=== PATIENT | female | born 1945 | race Caucasian/White ===

== ENCOUNTER → 2024-02-06 | Outpatient (CLI) | payer MEDICARE, OTHER, SELFPAY ==
--- NOTE | 2024-02-06 16:46 | XR_ITS ---
Examination: PA lateral chest 2 views TECHNIQUE: Upright PA lateral chest 2 views Exam date and time: February 06, 2024 1722 hours Comparison March 31, 2016 INDICATIONS: Coughing beginning 5 days ago. FINDINGS: No significant cardiac enlargement No pneumonia or pulmonary edema Moderate thoracic spondylosis IMPRESSION: No active disease
== END | disposition home or self-care (01) ==
PROVIDERS: PCP Nurse Practitioner Family; Referring Provider Nurse Practitioner Family; Visit Provider Nurse Practitioner Family
DX: R05.9 Cough, unspecified (principal)
CPT/HCPCS: 71046

== ENCOUNTER 2024-02-07 16:46 | Emergency (ER) | payer MEDICARE, OTHER, SELFPAY ==
[2024-02-07 17:02] VITALS: BP 124/63; PULSE 92; RESP 18; TEMP 36.6; O2SAT 95; BMI 31.4
--- NOTE | 2024-02-07 17:16 | EKG_ITS ---
[facility] Test Date: 2024-02-07 Pat Name: RENATO HENDERSON Department: Room: - Gender: Female Sailmaker: : [id number] Requested By: Wan Calvo (PASTEURISER OPERATOR) Order Number: [id number] Reading MD: Wan Calvo (PASTEURISER OPERATOR) Measurements Intervals [place] Rate: 85 P: DE: QRS: 5 QRSD: 84 T: 10 QT: 360 QTc: 429 Interpretive Statements ATRIAL FIBRILLATION LOW QRS VOLTAGE IN PRECORDIAL LEADS [QRS DEFLECTION < 1.0 mV IN CHEST LEADS] SEPTAL MYOCARDIAL INFARCTION , PROBABLY OLD [40+ ms Q WAVE IN V1/V2] Compared to ECG 01/25/2022 13:32:01 Low QRS voltage now present Myocardial infarct finding still present /store/S0/[id number]/ecg/[id number].pdf
--- NOTE | 2024-02-07 17:16 | XR_ITS ---
Examination: AP lateral chest 2 views Technique: Portable AP upright lateral chest 2 views Exam date and time: February 07, 2024 1733 hrs. Comparison February 06, 2024 Indications: Wheezing coughing shortness of breath beginning 3 days ago. Findings: Normal heart size Mild accentuation basilar bronchovascular markings No lobar pneumonia Prominent thoracic spondylosis Impression: Basilar bronchitis pattern
--- NOTE | 2024-02-07 17:17 | PD.EDRME ---
Rapid Medical Screening Exam RME Arrival date/time: 02/07/24 16:46 78-year-old female presents to the emergency department complaint of generalized weakness cough, congestion and pain Chief Complaint: Shortness of Breath/Dyspnea Time Seen by Provider: 02/07/24 17:02 Vital signs: Vital Signs Temperature 98 F 02/07/24 17:02 Pulse Rate 92 02/07/24 17:02 Respiratory Rate 18 02/07/24 17:02 Blood Pressure 124/63 02/07/24 17:02 Pulse Oximetry (%) 95 02/07/24 17:02 Oxygen Delivery Method Room Air 02/07/24 17:02
[2024-02-07 17:57] LABS: Basophils % (Auto) 1 % (0-2.5); Eosinophils # (Auto) 0.2 Thou/mm3 (0.0-0.5); Eosinophils % (Auto) 4 % (0-10); Hematocrit 40.2 % (36.0-46.0); Hemoglobin 13.7 g/dL (12.0-16.0); Immature Granulocytes % (Auto) 0 % (0-0); Immature Granulocytes Auto 0.01 Thou/mm3 (0.00-0.00); Lymphocytes # (Auto) 2.1 Thou/mm3 (1.0-4.8); Lymphocytes % (Auto) 39 % (10-50); Mean Corpuscular HGB Conc 34.1 g/dl (31.0-37.0); Mean Corpuscular Volume 88 fL (80-100); Monocytes # (Auto) 0.4 Thou/mm3 (0.0-0.8); Monocytes % (Auto) 8 % (0-12); Neutrophils # (Auto) 2.6 Thou/mm3 (1.8-7.7); Neutrophils % (Auto) 48 % (37-80); Nucleated Red Blood Cell % 0 /100 WBC (0); Platelet Count 190 Thou/mm3 (140-440); RDW Standard Deviation 42.8 fL (36.4-46.3); Red Blood Count 4.57 Miln/mm3 (4.00-5.20); White Blood Count 5.5 Thou/mm3 (3.6-11.0)
[2024-02-07 18:22] LABS: B-Type Natriuretic Peptide 64 pg/mL (0-100)
[2024-02-07 18:24] LABS: Alanine Aminotransferase 13 U/L (10-49); Albumin, Serum 4.5 gm/dL (3.4-4.8); Albumin/Globulin Ratio 1.9 (1.2-2.2); Alkaline Phosphatase 76 U/L (46-116); Anion Gap 8 (7-16); Aspartate Amino Transferase 19 U/L (0-34); BUN/Creatinine Ratio 13 Ratio (12-20); Bilirubin,Total 0.3 mg/dL (0.3-1.2); Blood Urea Nitrogen 12 mg/dL (9-23); Calcium 10.9 mg/dL (8.3-10.6); Calcium (Corrected) 10.9 mg/dL (8.5-10.1); Carbon Dioxide 23.7 mMol/L (20.0-31.0); Chloride 107 mMol/L (98-107); Creatinine (Component) 0.9 mg/dL (0.6-1.3); Estimated Creatinine Clearance 54.8 mL/min (>60); Globulin 2.4 gm/dL (2.3-3.5); Glucose 176 mg/dL (74-106); Osmolality,Calculated 281 (275-295); Potassium 4.1 mMol/L (3.4-5.1); Sodium 139 mMol/L (136-145); Total Protein 6.9 gm/dL (5.7-8.2); Troponin I < 0.020 ng/mL (0.0-0.045); eGFR > 60 See Note
--- NOTE | 2024-02-07 19:09 | PD.EDSOB ---
ED SOB =RME/HPI General Chief Complaint: Shortness of Breath/Dyspnea Stated Complaint: WHEEZING, COUGH, SOB X 3 DAYS Time Seen by Provider: 02/07/24 17:02 Arrival date/time: 02/07/24 16:46 Limitations: no limitations RME / HPI RME / HPI Narrative: 02/07/24 16:46 78-year-old female presents to the emergency department complaint of generalized weakness cough, congestion and pain DR. BLACKMON MAIN ED EVALUATION: 78-year-old female with history of hypertension, diabetes, Eliquis, aspirin presenting to the emergency department with generalized weakness x 2 weeks. It started when she started having general wet cough and saw her primary care and placed on a 5-day course of Zithromax. She was not doing any better and started wheezing today. She otherwise is tolerating p.o. and not vomiting. No fever. Generally body is achy and weak. No chest pain. MD Complaint: shortness of breath Onset (ago): hour(s) Context: recent illness Severity: mild Consistency/Duration: intermittent Associated symptoms: denies other symptoms Related Data Home Medications ?Medication ?Instructions ?Recorded ?Confirmed lisinopril 20 mg tablet 10 mg PO QDAY 06/19/20 06/20/22 metformin 500 mg tablet 500 mg PO BID 06/19/20 06/20/22 oxybutynin chloride 5 mg tablet 5 mg PO BID 06/19/20 06/20/22 sertraline 100 mg tablet (Zoloft) 100 mg PO QDAY 06/19/20 06/20/22 simvastatin 20 mg tablet 20 mg PO QDAY 06/19/20 06/20/22 apixaban 5 mg tablet (Eliquis) 5 mg PO BID 01/26/22 06/20/22 aspirin 81 mg tablet,delayed 81 mg PO QDAY 01/26/22 06/20/22 release metoprolol succinate 50 mg 50 mg PO QDAY 01/26/22 06/20/22 tablet,extended release 24 hr Previous Rx's ?Medication ?Instructions ?Recorded acyclovir 400 mg tablet 400 mg PO QDAY #21 tabs 06/22/22 pramoxine-zinc acetate 1 %-0.1 % 1 applic topical TID PRN skin 06/22/22 lotion (Calamine Clear) irritation #177 mL albuterol sulfate 90 mcg/actuation 2 puff inhalation Q6H PRN cough 5 02/07/24 aerosol inhaler days #8.5 grams amoxicillin 875 mg-potassium 1 tab PO BID #17 tabs 02/07/24 clavulanate 125 mg tablet prednisone 50 mg tablet 50 mg PO QDAY #7 tabs 02/07/24 Allergies Allergy/AdvReac Type Severity Reaction Status Date / Time codeine Allergy Intermediate Gastrointestinal Verified 02/07/24 16:47 Upset Review of Systems Review of Systems Systems Reviewed: All systems reviewed, normal except as documented Narrative Review of Systems: GEN: No fever, no chills, no weight loss EYES: No discharge, no visual changes, no pain HEENT: No ear pain, no congestion, no sore throat PULM: + shortness of breath, + we cough CV: No chest pain, no dyspnea on exertion, no palpitations GI: No nausea, no vomiting, no diarrhea, no pain, no constipation : No frequency, no urgency and no dysuria MUSC/SKEL: No joint pain, no back pain SKIN: No rash PSYCH: No hallucinations, no depression HEME/LYMPH: No easy bleeding or bruising tendencies NEURO: + generalized weakness, no headache Past Medical History Past Medical History CARDIAC: Positive Cardiac Disorders, Atrial Fibrillation, Hypercholesterolemia and Hypertension GASTROINTESTINAL: Positive Gastrointestinal Disorders and Gall Bladder Disease REPRODUCTIVE: Positive Previous Pregnancies MUSCULOSKELETAL: Positive Musculoskeletal Disorders and Arthritis ENDOCRINE: Positive Endocrine Disorders and Diabetes Mellitus Type 2 PSYCHO/SOCIAL: Positive Depression and Anxiety OTHER HISTORY: Positive Anesthesia Reactions, Chicken Pox, Measles and Mumps Family History FAMILY HISTORY: Positive Family Cardiac Disorders and Family Cancer Surgical History SURGICAL: Positive Angiogram and Tubal Ligation Social History SMOKING STATUS: Never smoker SECOND HAND EXPOSURE: No SUBSTANCE USE: does not use ALCOHOL: Never ED Exam General Limitations: Present no limitations General appearance: Present alert and in no apparent distress Head Head exam: Present atraumatic, normocephalic and normal inspection Eye Eye exam: Present normal appearance, PERRL and EOMI ENT ENT exam: Present normal exam, normal oropharynx and mucous membranes moist Neck Neck exam: Present normal inspection, full ROM and trachea midline Chest Chest inspection: Present normal inspection and symmetric chest wall rise Respiratory Respiratory exam: Present normal lung sounds bilaterally and wheezes; Absent accessory muscle use Cardiovascular Cardiovascular exam: Present regular rate, normal rhythm and normal heart sounds Abdominal Exam Abdominal exam: Present soft and normal bowel sounds Extremities Exam Extremities exam: Present normal inspection and full ROM Back Exam Back exam: Present normal inspection and full ROM Neurological Exam Neurological exam: Present alert, oriented X3 and CN II-XII intact Psychiatric Psychiatric exam: Present normal affect and normal mood Skin Skin exam: Present warm, dry, intact and normal color Course Quality Measures none Orders Category Date Time Status Bedside COVID-19 Antigen Test NOW Care 02/07/24 17:16 Active Bedside Influenza A&B Antigen Test NOW Care 02/07/24 17:16 Completed EKG (ED ONLY) *Do not use* NOW Care 02/07/24 17:16 Completed EKG (ED Only) Stat Exams 02/07/24 17:16 Draft XR chest 2V Stat Exams 02/07/24 17:16 Completed BNP [B-Type Natriuretic Peptide] Stat Lab 02/07/24 17:40 Completed CBC Stat Lab 02/07/24 17:40 Completed Comprehensive Metabolic Panel Stat Lab 02/07/24 17:40 Completed Troponin I Stat Lab 02/07/24 17:40 Completed Albuterol/Ipratr Rt Latanya [Duoneb Rt Latanya] Med 02/07/24 19:11 Discontinued 3 ml INH X1 ONE Ondansetron Odt [Zofran Odt] Med 02/07/24 19:52 Discontinued 4 mg PO X1 ONE cefTRIAXone [Rocephin] 1,000 mg Med 02/07/24 19:54 Discontinued Lidocaine 1% 20 ml [Xylocaine 1% 20 ML] 2.1 ml IM X1 predniSONE Med 02/07/24 19:53 Discontinued 60 mg PO X1 ONE Vital Signs Vital signs: Vital Signs Temperature 98 F 02/07/24 17:02 Pulse Rate 92 02/07/24 17:02 Respiratory Rate 18 02/07/24 17:02 Blood Pressure 124/63 02/07/24 17:02 Pulse Oximetry (%) 95 02/07/24 17:02 Oxygen Delivery Method Room Air 02/07/24 17:02 Procedures -ED EKG Interpretation #1: Date of EK02/07/24 Time of EK:28 Rate: 85 Interpretation: Interpreted by me Additional EKG comment: atrial fibrillation, rate 85, no elevations or depressions, low voltage, QTc is 402; history of atrial fibrillation in previous EKG Shortness of Breath / Dyspnea MDM Narrative MDM Narrative:: I, Haylee Barry, am scribing for and in the presence of Dr. Blackmon. Patient data External records reviewed:: [facility] previous records (Reviewed last admission record from 06/20/22 through 06/22/22, patient admitted for the following: Hallucination, visual, Herpes zoster, Herpes encephalitis, Acute UTI.) Clinical information provided by:: patient Social determinants that could affect healthcare access:: none Patient has the following chronic illnesses:: Hypertension, diabetes, Eliquis, aspirin, hypercholesterolemia, and UTIs. Angiogram, total right knee replacement surgery, and tubal ligation. How is presenting disease/condition affected by chronic disease/condition?: exacerbated by Evaluation data The following diagnostics were reviewed and interpreted by me:: lab results and radiology exam(s) Lab and/or radiology exams considered but not ordered:: none Interpretation Summary: Procedure(s): XR chest 2V Accession Number(s): [id number] cc: [place] (ALFREDITO),Wan GLASER; Simona Leahy; Tevin Love MD~ Examination: AP lateral chest 2 views Technique: Portable AP upright lateral chest 2 views Exam date and time: February 07, 2024 1733 hrs. Comparison February 06, 2024 Indications: Wheezing coughing shortness of breath beginning 3 days ago. Findings: Normal heart size Mild accentuation basilar bronchovascular markings No lobar pneumonia Prominent thoracic spondylosis Impression: Basilar bronchitis pattern Dictated By: Tevin Love MD Medications / Prescriptions Medications or Prescriptions considered but not ordered:: none Medication administrations:: Medication Administration History Discontinued Medications Albuterol/Ipratropium (Albuterol/Ipratropium (Duoneb) Rt Latanya 3 Ml Nebu) 3 ml INH X1 ONE Stop: 02/07/24 19:12 Ceftriaxone Sodium 1,000 mg/ (Lidocaine HCl 2.1 ml) 0 mg IM X1 ONE Stop: 02/07/24 19:55 Last Admin: 02/07/24 20:33 Dose: 1,000 mg Documented By: ANUPAM Ondansetron HCl (Ondansetron Odt 4 Mg Tabrap) 4 mg PO X1 ONE; Protocol Stop: 02/07/24 19:53 Last Admin: 02/07/24 20:39 Dose: Not Given Documented By: ANUPAM Non-Admin Reason: Patient Refused Prednisone (Prednisone 20 Mg Tablet) 60 mg PO X1 ONE Stop: 02/07/24 19:54 Last Admin: 02/07/24 20:29 Dose: 60 mg Documented By: DB see above Consultations Consultation(s) initiated? (list below): No Diagnosis Shortness of Breath Differential Diagnosis: congestive heart failure, community acquired pneumonia, pulmonary embolism and other (viral syndrome, [place], dehydration, electrolyte abnormality) Most likely diagnosis given after review of the tests above:: Community acquired pneumonia Admission Indicated Admission indicated?: not indicated Admission Request Was there a request for admission?: No Disposition Plan Disposition Plan: Discharge Discharge Attestation Discharge Attestation: The patient and all family members were given an opportunity to ask questions and understood the discharge instructions. Discharge instructions specifically effects, indications for sooner follow up or return to the emergency department, and the expected course of current diagnosis. Patient condition: Stable Discharge Plan Plan Patient Disposition: HOME (Self Care) Patient condition on transfer: Stable Prescriptions/Referrals Prescriptions/Med Rec: New amoxicillin-pot clavulanate 875-125 mg tablet 1 tab PO BID Qty: 17 0RF albuterol sulfate 90 mcg/actuation HFA aerosol inhaler 2 puff inhalation Q6H PRN (Reason: cough) 5 Days Qty: 8.5 0RF Rx Instructions: administer with spacer prednisone 50 mg tablet 50 mg PO QDAY Qty: 7 0RF No Action metformin 500 mg Tablet 500 mg PO BID Hold Instructions: Resume on 01/28/22. Resume Sunday 01/28 lisinopril 20 mg Tablet 10 mg PO QDAY sertraline [Zoloft] 100 mg Tablet 100 mg PO QDAY simvastatin 20 mg Tablet 20 mg PO QDAY oxybutynin chloride 5 mg Tablet 5 mg PO BID aspirin 81 mg Tablet,Delayed Release (Dr/Ec) 81 mg PO QDAY Eliquis 5 mg Tablet 5 mg PO BID Hold Instructions: Resume on 01/29/22. Resume monday01/29/22 metoprolol succinate 50 mg Tablet Extended Release 24 Hr 50 mg PO QDAY acyclovir 400 mg tablet 400 mg PO QDAY Qty: 21 0RF Calamine Clear 1-0.1 % lotion 1 applic topical TID PRN (Reason: skin irritation) Qty: 177 0RF Referrals: Simona Leahy FNP [Primary Care Provider] - In 1 week Problem List Clinical Impression: Community acquired pneumonia Patient/Caregiver Discharge Instructions Education Materials: ED Pneumonia (Adult) Additional Instructions: Return to the emergency department for worsening symptoms, or any other concerns. You can take [id number] Tylenol 650 mg 2 or 3 times a day. Follow-up with your doctor in the next 5 days. Print Language: Hungarian Stand Alone Forms: Jazzy Award Info., Patient Portal Info Letter
[2024-02-07 19:57] VITALS: PULSE 71; RESP 18; O2SAT 97
[2024-02-07] MEDS: predniSONE 20 MG TABLET 60 MG PO (20:29)
[2024-02-07] MEDS: cefTRIAXone 1,000 MG, LIDOCAINE 1% 20 ML 2.1 ML IM (20:33)
== END 2024-02-07 20:47 | disposition home or self-care (01) ==
PROVIDERS: Nurse Practitioner Primary Care; Emergency Provider Emergency Medicine; PCP Nurse Practitioner Family
DX: J18.9 Pneumonia, unspecified organism (principal); I48.91 Unspecified atrial fibrillation; I10 Essential (primary) hypertension; E78.00 Pure hypercholesterolemia, unspecified; Z79.01 Long term (current) use of anticoagulants
CPT/HCPCS: 36415; 71046; 80053; 83880; 84484; 85025; 87400; 87811; 93005; 94640; 96372; 99283; A9270; J0696; J3490; J7512